=== PATIENT | male | born 1945 | race Caucasian/White ===

== ENCOUNTER 2022-07-31 09:29 | Inpatient (IN) | payer MEDICARE, MEDICAID ==
[~2022-07-31] VITALS: Ht 188 cm; Wt 135.8 kg
[~2022-07-31 09:29] MED LIST: ALB0.5UD IH; ALBU18HF2 IH; ASPI-1264 PO; ATOR40TA72 PO; BIMA2.5D EACHEYE; BRIM5DRO2 LEFTEYE; BUPR1PAT TOP; CARV3.1289 PO; CLON-527 PO; CLOP75TA34 PO; FLO0.4C PO; FLUT1BLS4 PO; FURO-149 PO; INSU100V12 SQ; METF500T PO; NITR0.4T51 SL; NORCO10T PO; SPIR25TA5 PO; ZOLP5TAB8 PO
[2022-07-31 10:14] LABS: BASOPHILS # (AUTO) 0.1 X10'3 (0-0.2); BASOPHILS % (AUTO) 0.6 % (0-1); EOSINOPHILS % (AUTO) 0.2 % (0-6); LYMPHOCYTES # (AUTO) 0.4 X10'3 (1.1-4.8); LYMPHOCYTES % (AUTO) 3.7 % (21-51); MEAN PLATELET VOLUME 7.8 FL (7.4-10.4); MONOCYTES # (AUTO) 1.3 X10'3 (0-0.9); MONOCYTES % (AUTO) 12.4 % (2-12); NEUTROPHILS # (AUTO) 8.7 X10'3 (1.8-7.7); NEUTROPHILS % (AUTO) 83.1 % (42-75); PLATELET COUNT 302 X10'3 (140-440); RED BLOOD COUNT 4.87 X10'6 (4.70-6.10); RED CELL DISTRIBUTION WIDTH 20.2 % (11.5-14.5); WHITE BLOOD COUNT 10.5 X10'3 (4.5-11.0)
[2022-07-31 10:40] LABS: ALANINE AMINOTRANSFERASE 75 U/L (12-78); ALBUMIN 2.9 G/DL (3.4-5.0); ALBUMIN/GLOBULIN RATIO 0.7 (1.1-1.5); ALKALINE PHOSPHATASE 114 IU/L (46-116); ANION GAP 10 (8-16); ASPARTATE AMINO TRANSFERASE 161 U/L (10-37); BILIRUBIN,TOTAL 0.6 MG/DL (0.1-1.0); BLOOD UREA NITROGEN 51 MG/DL (7-18); BUN/CREATININE RATIO 20.5 (5.4-32.0); CALCIUM 9.1 MG/DL (8.5-10.1); CHLORIDE 100 MMOL/L (99-107); CREATININE 2.49 MG/DL (0.60-1.10); GLUCOSE 120 MG/DL (70-104); MAGNESIUM 2.5 MG/DL (1.5-2.4); SODIUM 136 MMOL/L (135-145); TOTAL CARBON DIOXIDE 25.6 MMOL/L (24-32); TOTAL PROTEIN 7.3 G/DL (6.4-8.2); eGFR 25 ML/MIN
[2022-07-31 10:42] LABS: HEMATOCRIT 40.9 % (42.0-52.0); MEAN CORPUSCULAR HEMOGLOBIN 26.9 PG (27.0-31.0)
[2022-07-31 10:43] LABS: HEMOGLOBIN 13.1 g/dl (14.0-17.9)
[2022-07-31 11:06] LABS: POTASSIUM 6.5 MMOL/L (3.5-5.1)
[2022-07-31] MEDS ORDERED: albuterol 2.5 MG/3 ML nebule NEB ONE (11:10)
[2022-07-31] MEDS ORDERED: insulin regular, human 10 units/0.1 ml syringe IV ONE (11:10)
[2022-07-31] MEDS ORDERED: sodium polystyrene sulfonate 15gm/60ml oral suspension PO ONE (11:10)
[2022-07-31] MEDS ORDERED: calcium chloride 100 MG/1 ML inj IV ONE (11:10)
[2022-07-31] MEDS ORDERED: dextrose 50%-water 50ml dispensing syringe IV ONE (11:10)
[2022-07-31 11:22] LABS: ANISOCYTOSIS 3+; PLATELET ESTIMATE NORMAL
[2022-07-31] MEDS ORDERED: POTASSIUM BICARB 20meq eff tab 20 MEQ TABLET.EFF PO PRN ×2 (11:40)
[2022-07-31] MEDS ORDERED: potassium CL 10mEq/100ml bag 100 ML IV PRN (11:40)
[2022-07-31] MEDS ORDERED: magnesium 4gm in 100ml NS 100 ML IV PRN (11:40)
[2022-07-31] MEDS ORDERED: ondansetron/PF 4mg/2ml inj IV PRN (11:40)
[2022-07-31] MEDS ORDERED: magnesium 2GM in 50ml NS 50 ML IV PRN (11:40)
[2022-07-31] MEDS ORDERED: magnesium Cl slow-release 64mg tablet PO PRN (11:40)
[2022-07-31] MEDS ORDERED: PERFLUTREN PROTEIN-A MICROSPHR (Optison) 0.22 MG/ML 3ML VIAL IV ONE (11:40)
--- NOTE | 2022-07-31 12:55 | NUR ---
PAGED DR DE LEON REGARDING ORDER FOR DAVIS CATHETER FOR MONITOR CRITICAL I/O .TELE ORDER TO STRT THE DAVIS CATHETER ,WILL FOLLOW THE ORDERS.
[2022-07-31] MEDS ORDERED: LIDOcaine 2% 10ml TOPICAL JELLY (Urojet) TP ONE (13:00)
--- NOTE | 2022-07-31 13:00 | NUR ---
DR PADRON AT BEDSIDE.
[2022-07-31 14:19] LABS: TOTAL PROTEIN,URINE RANDOM 22.4 MG/DL
[2022-07-31 14:40] LABS: CLARITY,URINE CLEAR (Clear); COLOR,URINE YELLOW (Yellow); GLUCOSE, URINE NEGATIVE (Neg); KETONES,URINE NEGATIVE (Neg); LEUKOCYTE ESTERASE ,URINE NEGATIVE (Neg); NITRITES, URINE NEGATIVE (Neg); OCCULT BLOOD,URINE NEGATIVE (Neg); PROTEIN,URINE NEGATIVE (Neg); UROBILINOGEN,URINE 0.2 E.U/dL (0.2-1.0)
[2022-07-31 14:44] LABS: UA COLLECTION TYPE VOIDED
[2022-07-31] MEDS ORDERED: furosemide 20MG tablet PO ONE (15:00)
--- NOTE | 2022-07-31 15:38 | NUR ---
PT REFUSING DAVIS CATHETER ,PT STATED "IT HURTS AND I CAN'T HANDLE IT."
[2022-07-31] MEDS ORDERED: ALBU17AE26 PO (17:24)
[2022-07-31] MEDS ORDERED: HYDR-3973 PO (17:24)
[2022-07-31] MEDS ORDERED: GABA300C PO (17:24)
[2022-07-31] MEDS: SODIUM ZIRCONIUM CYCLOSILICATE 10 GM POWD.PACK PO SCH ×2 (18:06→21:00)
[2022-07-31] MEDS ORDERED: INSU100V12 SQ (19:25)
[2022-07-31 19:27] LABS: HEMOGLOBIN A1C 6.6 % (4.5-6.2)
[2022-07-31] MEDS ORDERED: FLUT1BLS4 INH (19:28)
[2022-07-31] MEDS ORDERED: ZOLP10TA PO (19:28)
[2022-07-31] MEDS ORDERED: FLO0.4C PO (19:28)
[2022-07-31] MEDS ORDERED: CLOP75TA34 PO (19:30)
[2022-07-31] MEDS ORDERED: BUSP15TA7 PO (19:30)
[2022-07-31] MEDS ORDERED: CHLO25TA10 PO (19:30)
[2022-07-31] MEDS ORDERED: METF-438 PO (19:30)
--- NOTE | 2022-07-31 19:30 | NUR ---
assisting RN with pt care, pt stated he had large loose bowel movement today "like paste", has been using urinal, on 2 liters nasal cannula, talking full sentences
[2022-07-31] MEDS ORDERED: TRAZ-256 PO (19:32)
[2022-07-31] MEDS ORDERED: METO25TA6 PO (19:32)
[2022-07-31] MEDS ORDERED: FURO40TA4 PO (19:32)
[2022-07-31] MEDS ORDERED: ATOR40TA72 PO (19:32)
--- NOTE | 2022-07-31 19:37 | NUR ---
Received report from JUAN Aguayo. Patient to follow shortly. Addendum: 08/01/22 at 4893 by Keturah Wilson RN Informed by this nurse that the patient refused to have a guaman catheter inserted.
[2022-07-31 19:50] VITALS: BP 148/52
[2022-07-31] MEDS: K and/or MAG REPLACEMENT MC SCH (20:00)
[2022-07-31] MEDS ORDERED: traZODone 150mg tablet PO ONE (20:00)
--- NOTE | 2022-07-31 20:00 | NUR ---
pt has bandaide on left upper back, refuses to have taken off or assessed. Addendum: 08/01/22 at 0408 by Ata Trujillo RN Amended: Links added.
[2022-07-31] MEDS ORDERED: zolpidem 5mg tablet PO ONE (21:00)
[2022-07-31 21:15] VITALS: BP 158/62
[2022-07-31 22:00] VITALS: BP 146/58
[2022-07-31 22:15] LABS: ALBUMIN 2.5 G/DL (3.4-5.0); ANION GAP 8 (8-16); BLOOD UREA NITROGEN 49 MG/DL (7-18); BUN/CREATININE RATIO 21.8 (5.4-32.0); CALCIUM 8.7 MG/DL (8.5-10.1); CHLORIDE 102 MMOL/L (99-107); CREATININE 2.25 MG/DL (0.60-1.10); GLUCOSE 207 MG/DL (70-104); POTASSIUM 4.6 MMOL/L (3.5-5.1); SODIUM 136 MMOL/L (135-145); TOTAL CARBON DIOXIDE 26.4 MMOL/L (24-32); eGFR 29 ML/MIN
[2022-07-31] MEDS ORDERED: metoprolol tartrate 25mg tablet PO ONE (22:25)
[2022-07-31] MEDS ORDERED: traZODone 50mg tablet PO ONE (22:55)
[2022-07-31] MEDS ORDERED: tamsulosin 0.4mg capsule PO ONE (23:25)
--- NOTE | 2022-07-31 23:52 | NUR ---
Informed MD that potassium came back at 4.6. MD stated do not give the 2100 dose.
--- NOTE | 2022-08-01 03:30 | NUR ---
pt moved to room 3009A to be closer to nursing station and in view of staff. pt became confused, agitated, yelling at staff telling them to "get out of my house" your not nurses, you're a bunch of [employer]" "Get the fuck out of here, or I will punch you" security was called when he insisted on getting oob and very unsteady. security came and pt laid back in bed. pt in bed at this time, and is more calm, bed alarm on. alll belongings moved with patient. Addendum: 08/01/22 at 0334 by Ata Trujillo RN Amended: Links added.
--- NOTE | 2022-08-01 04:00 | NUR ---
Bed alarm went off and staff ran into room. Patient just needed assistance to use BSC. Patient became agitated again and threatening nursing staff. Security call again and patient settled down. Now back in bed snoring with alarm on.
--- NOTE | 2022-08-01 05:41 | NUR ---
pt calm at this time, resting with eyes closed. Addendum: 08/01/22 at 0541 by Ata Trujillo RN Amended: Links added.
[2022-08-01 06:00] VITALS: BP 147/48
[2022-08-01 06:37] LABS: BASOPHILS % (AUTO) 0.5 % (0-1); EOSINOPHILS % (AUTO) 0.4 % (0-6); HEMATOCRIT 36.2 % (42.0-52.0); HEMOGLOBIN 11.3 g/dl (14.0-17.9); LYMPHOCYTES # (AUTO) 0.3 X10'3 (1.1-4.8); MEAN CORPUSCULAR HEMOGLOBIN 26.4 PG (27.0-31.0); MEAN CORPUSCULAR HGB CONC 31.2 g/dL (33.0-36.5); MEAN CORPUSCULAR VOLUME 84.7 FL (78-98); MEAN PLATELET VOLUME 7.6 FL (7.4-10.4); MONOCYTES # (AUTO) 1.1 X10'3 (0-0.9); MONOCYTES % (AUTO) 13.9 % (2-12); NEUTROPHILS # (AUTO) 6.7 X10'3 (1.8-7.7); NEUTROPHILS % (AUTO) 81.2 % (42-75); PLATELET COUNT 273 X10'3 (140-440); RED BLOOD COUNT 4.28 X10'6 (4.70-6.10); RED CELL DISTRIBUTION WIDTH 19.1 % (11.5-14.5); WHITE BLOOD COUNT 8.2 X10'3 (4.5-11.0)
[2022-08-01 06:40] LABS: ALBUMIN 2.5 G/DL (3.4-5.0); ANION GAP 6 (8-16); BLOOD UREA NITROGEN 50 MG/DL (7-18); BUN/CREATININE RATIO 25.4 (5.4-32.0); CALCIUM 8.5 MG/DL (8.5-10.1); CHLORIDE 105 MMOL/L (99-107); CREATININE 1.97 MG/DL (0.60-1.10); GLUCOSE 157 MG/DL (70-104); MAGNESIUM 2.3 MG/DL (1.5-2.4); POTASSIUM 4.2 MMOL/L (3.5-5.1); SODIUM 139 MMOL/L (135-145); TOTAL CARBON DIOXIDE 28.2 MMOL/L (24-32); eGFR 33 ML/MIN
[2022-08-01] MEDS: SODIUM ZIRCONIUM CYCLOSILICATE 10 GM POWD.PACK PO SCH ×2 (06:45→13:00)
--- NOTE | 2022-08-01 06:46 | NUR ---
Problems reprioritized. Patient report given, questions answered & plan of care reviewed with Queenie SALAS.
[2022-08-01] MEDS: K and/or MAG REPLACEMENT MC SCH (07:40)
--- NOTE | 2022-08-01 08:08 | NUR ---
Diabetes consult: Pt w/ hx of DM A1c 6.6 per EMR. Well controlled and appropriate. DM ed not indicated at this time. Addendum: 08/01/22 at [address] Amended: Links added.
[2022-08-01 10:00] VITALS: BP 114/42
[2022-08-01] MEDS: ipratropium/albuterol 3ml nebule NEB SCH ×3 (14:49→22:53)
[2022-08-01 14:57] LABS: ABG BASE EXCESS 1.6 mmol/L (-2.0-2.0); ABG HCO3 26.2 mmol/L (22.0-26.0); ABG OXYGEN SATURATION 96.4 % (94-97); ABG PCO2 (T) 41.1 mmHg (35.0-48.0); ALLEN'S TEST POSITIVE; FCOHb 0.9 % (0.0-3.9); FLOW 2 L/min; FMetHb 0.2 % (0.0-1.5); FO2Hb 95.3 % (94-97); TOTAL HEMOGLOBIN 12.4 G/dl (14.0-17.9)
[2022-08-01] MEDS: ceFAZolin/D5W- 1GM premix 50 ML IV SCH (17:20)
[2022-08-01 18:00] VITALS: BP 145/49
--- NOTE | 2022-08-01 18:22 | NUR ---
PAGER ID: [phone] MESSAGE: [phone] Sorter requesting hydrocodone for pain. nothing ordered. Med rec needs addressed please. KACY [id number]
--- NOTE | 2022-08-01 18:50 | NUR ---
Patient in room ORTHO 4009. I have received report from Queenie SALAS and had the opportunity to ask questions and assume patient care.
--- NOTE | 2022-08-01 18:51 | NUR ---
Report to Keturah SALAS
[2022-08-01 20:00] VITALS: BP 145/49
--- NOTE | 2022-08-01 20:44 | NUR ---
Called md regarding patient's med rec not being completed today. TRISH HERNANDEZ gave the following orders: One time norco for pain,ambien for sleep,lasix 40mg IVP, gabapenein 300mg HS, metoprolol and flomax. Will enter into computer. Addendum: 08/01/22 at 2246 by Keturah Wilson RN [place] 5/325mg order is prn q6hr pain,
[2022-08-01] MEDS ORDERED: furosemide 40mg/4ml inj IV ONE (20:55)
[2022-08-01] MEDS ORDERED: tamsulosin 0.4mg capsule PO SCH (21:00)
[2022-08-01] MEDS: HYDROcodone/acetaminophen 5mg/325mg tablet PO PRN (21:38)
[2022-08-01] MEDS: metoprolol tartrate 25mg tablet PO SCH (21:40)
[2022-08-01] MEDS: methylPREDNISolone sod succ 125mg/2ml vial IV SCH (21:42)
[2022-08-01 22:00] VITALS: BP 132/47
[2022-08-01] MEDS: zolpidem 5mg tablet PO PRN (22:32)
[2022-08-02] MEDS: ceFAZolin/D5W- 1GM premix 50 ML IV SCH ×3 (00:19→23:00)
[2022-08-02] MEDS: ipratropium/albuterol 3ml nebule NEB SCH ×6 (02:43→22:08)
[2022-08-02] MEDS: HYDROcodone/acetaminophen 5mg/325mg tablet PO PRN ×2 (05:14→22:58)
[2022-08-02 06:30] LABS: BASOPHILS % (AUTO) 0.1 % (0-1); EOSINOPHILS % (AUTO) 0 % (0-6); HEMATOCRIT 35.4 % (42.0-52.0); HEMOGLOBIN 11.3 g/dl (14.0-17.9); LYMPHOCYTES # (AUTO) 0.1 X10'3 (1.1-4.8); LYMPHOCYTES % (AUTO) 2.4 % (21-51); MEAN CORPUSCULAR HEMOGLOBIN 26.9 PG (27.0-31.0); MEAN CORPUSCULAR HGB CONC 32.1 g/dL (33.0-36.5); MEAN CORPUSCULAR VOLUME 83.9 FL (78-98); MEAN PLATELET VOLUME 7.6 FL (7.4-10.4); MONOCYTES # (AUTO) 0.1 X10'3 (0-0.9); MONOCYTES % (AUTO) 1.8 % (2-12); NEUTROPHILS # (AUTO) 5.9 X10'3 (1.8-7.7); NEUTROPHILS % (AUTO) 95.7 % (42-75); PLATELET COUNT 276 X10'3 (140-440); RED BLOOD COUNT 4.22 X10'6 (4.70-6.10); RED CELL DISTRIBUTION WIDTH 19.4 % (11.5-14.5); WHITE BLOOD COUNT 6.1 X10'3 (4.5-11.0)
[2022-08-02 06:39] LABS: ALBUMIN 2.6 G/DL (3.4-5.0); ANION GAP 7 (8-16); BLOOD UREA NITROGEN 43 MG/DL (7-18); BUN/CREATININE RATIO 24.9 (5.4-32.0); CALCIUM 8.4 MG/DL (8.5-10.1); CHLORIDE 100 MMOL/L (99-107); CREATININE 1.73 MG/DL (0.60-1.10); GLUCOSE 227 MG/DL (70-104); MAGNESIUM 1.9 MG/DL (1.5-2.4); POTASSIUM 4.2 MMOL/L (3.5-5.1); SODIUM 137 MMOL/L (135-145); TOTAL CARBON DIOXIDE 30.5 MMOL/L (24-32); eGFR 39 ML/MIN
--- NOTE | 2022-08-02 06:54 | NUR ---
Problems reprioritized. Patient report given, questions answered & plan of care reviewed with Cynthia SALAS.
[2022-08-02 07:00] VITALS: BP 140/52
--- NOTE | 2022-08-02 07:01 | NUR ---
Patient in room ORTHO 4009. I have received report from Keturah Nayak and had the opportunity to ask questions and assume patient care.
[2022-08-02] MEDS ORDERED: metoprolol tartrate 25mg tablet PO SCH (08:00)
[2022-08-02] MEDS: methylPREDNISolone sod succ 125mg/2ml vial IV SCH ×2 (08:14→22:40)
[2022-08-02] MEDS: metoprolol tartrate 25mg tablet PO SCH ×2 (08:15→21:29)
--- NOTE | 2022-08-02 09:35 | NUR ---
PAGER ID: [phone] MESSAGE: Yvan Stephenser#[phone]- Please reconcile pt's home meds. Pt requesting his medications since he has been off for days.Dr Le concern about pt not getting care he requested? Notes? thank you so much. Cynthia [phone]
[2022-08-02] MEDS ORDERED: albumin (human) 25% 100 ML IV solution IV ONE (09:55)
[2022-08-02 10:00] VITALS: BP 137/48
[2022-08-02] MEDS ORDERED: DEXTROSE 15 GM of carb/4 tabs (each vial/BOTTLE has 4 tablets) PO PRN ×2 (10:20)
[2022-08-02] MEDS ORDERED: glucagon, human recombinant 1mg kit SUBCUT PRN (10:20)
[2022-08-02] MEDS ORDERED: dextrose 50%-water 50ml dispensing syringe IV PRN ×2 (10:20)
[2022-08-02] MEDS ORDERED: MESSAGE TO PHARMACY PO ONE (10:20)
[2022-08-02] MEDS: furosemide 40mg/4ml inj IV SCH (11:11)
[2022-08-02] MEDS: clopidogrel 75mg tablet PO SCH (11:11)
--- NOTE | 2022-08-02 16:28 | NUR ---
PAGER ID: [phone] MESSAGE: Aydin Young#[phone]- Pt loss his IV infiltrated, Dr Le suggest we switch all meds to PO ONLY because pt will need veins for HD. Please advise. Thank you Cynthia Lopez [phone]
[2022-08-02 18:00] VITALS: BP 131/76
[2022-08-02] MEDS: traZODone 50mg tablet PO SCH (18:39)
--- NOTE | 2022-08-02 18:58 | NUR ---
Problems reprioritized. Patient report given, questions answered & plan of care reviewed with Margy Ji Rn.
--- NOTE | 2022-08-02 18:59 | NUR ---
Patient in room ORTHO 4009. I have received report from SAMUEL SALAS and had the opportunity to ask questions and assume patient care.
[2022-08-02] MEDS: insulin Lispro (HumaLOG) vial - multi-dose SQ SCH ×2 (19:46→22:53)
[2022-08-02] MEDS ORDERED: non-formulary drug (Metoprolol Tartrate 1 TAB) PO SCH (20:00)
[2022-08-02] MEDS ORDERED: gabapentin 300mg capsule PO SCH (21:00)
[2022-08-02] MEDS ORDERED: non-formulary drug (Zolpidem Tartrate (Ambien) 1 TAB) PO SCH (21:00)
[2022-08-02] MEDS: tamsulosin 0.4mg capsule PO SCH (21:28)
[2022-08-02] MEDS: gabapentin 300mg capsule PO SCH (21:28)
[2022-08-02] MEDS: busPIRone 15mg tablet PO SCH (21:36)
[2022-08-02 22:00] VITALS: BP 130/52
--- NOTE | 2022-08-02 22:25 | NUR ---
PAGED DR. ASHER IF WE CAN SWITCH IV MEDS TO PO SINCE DR. PADRON ORDERED FOR NO IV ACCESS TO THE PATIENT. AWAITING CALL BACK.
--- NOTE | 2022-08-02 22:40 | NUR ---
DR. ASHER CALLED BACK AND WAS ASKED IF WE CAN CHANGE IV ABT ANCEF TO PO AND SOLUMEDROL TO PO SINCE DR. PADRON ORDERED FOR NO IV ACCESS FOR THE PATIENT AND SAID HE CAN'T ORDER ANYTHING ABOUT IT TONIGHT, LET THEM DEAL IT TOMORROW MORNING BETWEEN HOSPITALIST AND DR. PADRON.
[2022-08-02] MEDS: insulin glargine (Lantus) pen - multi-dose SQ SCH (22:55)
[2022-08-02] MEDS: zolpidem 5mg tablet PO PRN (22:57)
--- NOTE | 2022-08-02 23:05 | NUR ---
Charting by Alicia HOLLIS reviewed by Miesha Jason RN
[2022-08-03 02:10] VITALS: BP 111/38
--- NOTE | 2022-08-03 02:10 | NUR ---
tele reported 6 beat run v-tach. pt sleeping - vss. noted pt had taken off oxygen and sats 85%. replaced 2L oxygen - sats immediately improved to 92%. pt asymptomatic. paged Dr. Haddad to notify him. awaiting response,.
[2022-08-03] MEDS: ipratropium/albuterol 3ml nebule NEB SCH ×6 (03:00→23:00)
[2022-08-03 06:00] VITALS: BP 101/71
[2022-08-03 06:13] LABS: BASOPHILS % (AUTO) 0.1 % (0-1); EOSINOPHILS % (AUTO) 0.1 % (0-6); HEMATOCRIT 33.9 % (42.0-52.0); HEMOGLOBIN 10.9 g/dl (14.0-17.9); LYMPHOCYTES # (AUTO) 0.3 X10'3 (1.1-4.8); LYMPHOCYTES % (AUTO) 2.7 % (21-51); MEAN CORPUSCULAR HEMOGLOBIN 26.8 PG (27.0-31.0); MEAN CORPUSCULAR HGB CONC 32.2 g/dL (33.0-36.5); MEAN CORPUSCULAR VOLUME 83.3 FL (78-98); MEAN PLATELET VOLUME 7.4 FL (7.4-10.4); MONOCYTES % (AUTO) 10.3 % (2-12); NEUTROPHILS # (AUTO) 8.1 X10'3 (1.8-7.7); NEUTROPHILS % (AUTO) 86.8 % (42-75); PLATELET COUNT 245 X10'3 (140-440); RED BLOOD COUNT 4.07 X10'6 (4.70-6.10); RED CELL DISTRIBUTION WIDTH 19.2 % (11.5-14.5); WHITE BLOOD COUNT 9.3 X10'3 (4.5-11.0)
[2022-08-03 06:19] LABS: ALBUMIN 2.8 G/DL (3.4-5.0); ANION GAP 6 (8-16); BLOOD UREA NITROGEN 42 MG/DL (7-18); BUN/CREATININE RATIO 27.1 (5.4-32.0); CALCIUM 8.5 MG/DL (8.5-10.1); CHLORIDE 100 MMOL/L (99-107); CREATININE 1.55 MG/DL (0.60-1.10); GLUCOSE 280 MG/DL (70-104); POTASSIUM 3.8 MMOL/L (3.5-5.1); SODIUM 138 MMOL/L (135-145); TOTAL CARBON DIOXIDE 31.9 MMOL/L (24-32); eGFR 44 ML/MIN
--- NOTE | 2022-08-03 06:28 | NUR ---
Problems reprioritized. Patient report given, questions answered & plan of care reviewed with SAMUEL SALAS.
--- NOTE | 2022-08-03 06:45 | NUR ---
Patient in room ORTHO 4009. I have received report from Margy Ji RN and had the opportunity to ask questions and assume patient care.
[2022-08-03] MEDS: metoprolol tartrate 25mg tablet PO SCH ×2 (08:00→22:10)
[2022-08-03] MEDS: busPIRone 15mg tablet PO SCH ×2 (08:32→22:09)
[2022-08-03] MEDS: atorvastatin 20mg tablet PO SCH (08:32)
[2022-08-03] MEDS: clopidogrel 75mg tablet PO SCH (08:32)
[2022-08-03] MEDS: HYDROcodone/acetaminophen 5mg/325mg tablet PO PRN ×3 (09:05→22:14)
[2022-08-03] MEDS: ceFAZolin/D5W- 1GM premix 50 ML IV SCH ×3 (09:06→16:42)
[2022-08-03 10:00] VITALS: BP 127/55
[2022-08-03] MEDS: furosemide 40mg/4ml inj IV SCH (10:17)
[2022-08-03] MEDS: methylPREDNISolone sod succ 125mg/2ml vial IV SCH (10:17)
[2022-08-03] MEDS: insulin Lispro (HumaLOG) vial - multi-dose SQ SCH ×4 (10:21→22:13)
[2022-08-03] MEDS: methylPREDNISolone sod succ/PF 40mg inj. IV SCH ×3 (11:55→22:09)
--- NOTE | 2022-08-03 14:27 | NUR ---
Message: Aydin Varma#[phone]- Pt has [place] 5 Q6hr, He states he is painful, 04/07. Can I get Tylenol 650 to give him? Please. Thank you. Cynthia Lopez [phone]
[2022-08-03] MEDS ORDERED: acetaminophen 325mg tablet PO PRN (14:45)
--- NOTE | 2022-08-03 17:23 | NUR ---
O2 Sat at rest on room air:___% If below 89%: Recovery O2 Sat at rest on ___LPM:___%:___% via (mask/nasal cannula, etc..) No further documentation is necessary. If O2 Sat did not drop below 89% on room air,ambulate patient on room air. O2 Sat while ambulating on room air:_88_% Recovery O2 Sat while ambulating on _2__LPM:__95_% No further documentation is necessary. If patient does not drop below 89% while ambulating, he/she does not qualify for home O2.
[2022-08-03 18:00] VITALS: BP 144/57
--- NOTE | 2022-08-03 18:37 | NUR ---
Problems reprioritized. Patient report given, questions answered & plan of care reviewed with Margy Ji RN.
[2022-08-03 22:00] VITALS: BP 143/54
[2022-08-03] MEDS: traZODone 50mg tablet PO SCH (22:02)
[2022-08-03] MEDS: gabapentin 300mg capsule PO SCH (22:10)
[2022-08-03] MEDS: zolpidem 5mg tablet PO PRN (22:10)
[2022-08-03] MEDS: tamsulosin 0.4mg capsule PO SCH (22:10)
[2022-08-03] MEDS: insulin glargine (Lantus) pen - multi-dose SQ SCH (22:11)
[2022-08-04] MEDS: ceFAZolin/D5W- 1GM premix 50 ML IV SCH ×2 (00:47→08:30)
[2022-08-04] MEDS: methylPREDNISolone sod succ/PF 40mg inj. IV SCH ×2 (02:46→08:30)
[2022-08-04] MEDS: ipratropium/albuterol 3ml nebule NEB SCH ×3 (03:38→11:14)
[2022-08-04 05:52] LABS: BASOPHILS % (AUTO) 0 % (0-1); EOSINOPHILS % (AUTO) 0 % (0-6); HEMOGLOBIN 11.7 g/dl (14.0-17.9); LYMPHOCYTES # (AUTO) 0.2 X10'3 (1.1-4.8); MEAN CORPUSCULAR HEMOGLOBIN 26.6 PG (27.0-31.0); MEAN CORPUSCULAR HGB CONC 31.6 g/dL (33.0-36.5); MEAN CORPUSCULAR VOLUME 84.3 FL (78-98); MEAN PLATELET VOLUME 7.5 FL (7.4-10.4); MONOCYTES # (AUTO) 0.2 X10'3 (0-0.9); NEUTROPHILS # (AUTO) 7.8 X10'3 (1.8-7.7); PLATELET COUNT 250 X10'3 (140-440); RED BLOOD COUNT 4.39 X10'6 (4.70-6.10); RED CELL DISTRIBUTION WIDTH 19.6 % (11.5-14.5); WHITE BLOOD COUNT 8.2 X10'3 (4.5-11.0)
[2022-08-04 05:59] LABS: ALBUMIN 2.9 G/DL (3.4-5.0); ANION GAP 6 (8-16); BLOOD UREA NITROGEN 40 MG/DL (7-18); CALCIUM 8.5 MG/DL (8.5-10.1); CHLORIDE 99 MMOL/L (99-107); CREATININE 1.48 MG/DL (0.60-1.10); GLUCOSE 249 MG/DL (70-104); MAGNESIUM 1.8 MG/DL (1.5-2.4); POTASSIUM 4.4 MMOL/L (3.5-5.1); SODIUM 135 MMOL/L (135-145); TOTAL CARBON DIOXIDE 30.4 MMOL/L (24-32); eGFR 46 ML/MIN
[2022-08-04 06:00] VITALS: BP 129/71
--- NOTE | 2022-08-04 06:22 | NUR ---
Problems reprioritized. Patient report given, questions answered & plan of care reviewed with KIMBERLY SALAS.
[2022-08-04] MEDS: HYDROcodone/acetaminophen 5mg/325mg tablet PO PRN (06:55)
[2022-08-04 07:50] LABS: PLATELET ESTIMATE NORMAL
[2022-08-04 07:51] LABS: ANISOCYTOSIS 2+; POIKILOCYTOSIS 1+; POLYCHROMASIA 1+
[2022-08-04] MEDS ORDERED: heparin, porcine 5000 units/ml vial SQ SCH (08:00)
[2022-08-04] MEDS: insulin Lispro (HumaLOG) vial - multi-dose SQ SCH (08:18)
[2022-08-04] MEDS: busPIRone 15mg tablet PO SCH (08:30)
[2022-08-04] MEDS: clopidogrel 75mg tablet PO SCH (08:30)
[2022-08-04] MEDS: furosemide 40mg/4ml inj IV SCH (08:30)
[2022-08-04] MEDS: metoprolol tartrate 25mg tablet PO SCH (08:30)
[2022-08-04] MEDS: atorvastatin 20mg tablet PO SCH (08:30)
--- NOTE | 2022-08-04 08:30 | NUR ---
O2 Sat at rest on room air:_90__% If below 89%: Recovery O2 Sat at rest on ___LPM:___%:___% via (mask/nasal cannula, etc..) No further documentation is necessary. If O2 Sat did not drop below 89% on room air,ambulate patient on room air. O2 Sat while ambulating on room air:___% Recovery O2 Sat while ambulating on ___LPM:___% No further documentation is necessary. If patient does not drop below 89% while ambulating, he/she does not qualify for home O2.
[2022-08-04] MEDS ORDERED: PRED10TA23 PO (08:46)
[2022-08-04] MEDS ORDERED: CEFD300C3 PO (08:46)
[2022-08-04] MEDS ORDERED: LACT1CAP55 PO (08:46)
--- NOTE | 2022-08-04 09:41 | NUR ---
O2 Sat at rest on room air:__93_% If below 89%: Recovery O2 Sat at rest on ___LPM:___%:___% via (mask/nasal cannula, etc..) No further documentation is necessary. If O2 Sat did not drop below 89% on room air,ambulate patient on room air. O2 Sat while ambulating on room air:_87__% Recovery O2 Sat while ambulating on _2 LPM:95___% No further documentation is necessary. If patient does not drop below 89% while ambulating, he/she does not qualify for home O2.
[2022-08-04 10:00] VITALS: BP 140/55
[2022-08-04] MEDS ORDERED: HYDROcodone/acetaminophen 10/325mg tab PO ONE (10:50)
== END 2022-08-04 12:15 | disposition home or self-care (01) | DRG 682 ==
LOC: EDBD 09:30 → ER 09:30 → ED HOLD 11:43 → ORTHO 4S 19:48
PROVIDERS: ADMIT Internal Medicine; ATTEND Internal Medicine
DX: N17.9 Acute kidney failure, unspecified (principal); I50.23 Acute on chronic systolic (congestive) heart failure; J96.01 Acute respiratory failure with hypoxia; L03.115 Cellulitis of right lower limb; I13.0 Hypertensive heart and chronic kidney disease with heart failure and stage 1 through stage 4 chronic kidney disease, or unspecified chronic kidney disease; J44.1 Chronic obstructive pulmonary disease with (acute) exacerbation; L03.116 Cellulitis of left lower limb; E87.5 Hyperkalemia; E11.22 Type 2 diabetes mellitus with diabetic chronic kidney disease; F41.9 Anxiety disorder, unspecified; E11.65 Type 2 diabetes mellitus with hyperglycemia; G47.00 Insomnia, unspecified; F32.A Depression, unspecified; E66.01 Morbid (severe) obesity due to excess calories; E78.5 Hyperlipidemia, unspecified; N18.30 Chronic kidney disease, stage 3 unspecified; N40.0 Benign prostatic hyperplasia without lower urinary tract symptoms; Z78.1 Physical restraint status; Z79.4 Long term (current) use of insulin; Z79.899 Other long term (current) drug therapy; Z87.891 Personal history of nicotine dependence; Z88.8 Allergy status to other drugs, medicaments and biological substances; Z68.38 Body mass index [BMI] 38.0-38.9, adult
CPT/HCPCS: 36415; 36600; 71045; 80048; 80053; 81003; 82570; 82803; 82948; 83036; 83735; 83880; 84133; 84156; 84300; 84484; 85008; 85018; 85025; 87081; 93005; 93306; 94640; 94760; 96374; 96375; 97110; 97116; 97161; 97530; 99285; A4314; A4349; A4615; A6258; G0378; J0690; J1644; J1815; J1940; J2920; J2930; J3490; J7040; P9047